=== PATIENT | female | born 1960 | race Caucasian/White ===

== ENCOUNTER 2017-02-18 22:39 | Emergency (ER) | payer OTHER ==
[~2017-02-18] VITALS: Ht 167.6 cm; Wt 83.2 kg
[2017-02-19 00:19] VITALS: BP 156/81
[2017-02-19] MEDS ORDERED: TYLENOL WITH C1 EACH PO (01:26)
== END 2017-02-19 01:31 | disposition home or self-care (01) ==
LOC: EXP 22:39 → EME 22:39 → EXP 02-19 01:31
PROC: 2W38X1Z Immobilization of Right Upper Extremity using Splint (ICD-10-PCS; principal; 2017-02-18)
DX: S52.131A Displaced fracture of neck of right radius, initial encounter for closed fracture (principal); M25.511 Pain in right shoulder; W10.9XXA Fall (on) (from) unspecified stairs and steps, initial encounter
CPT/HCPCS: 73030; 73090; 73110; 99281; 99284